=== PATIENT | male | born 1950 | race Caucasian/White ===

== ENCOUNTER → 2019-01-30 | Outpatient (CLI) | payer OTHER ==
[~2019-01-30] MED LIST: METF500C PO; Naprosyn500 MG PO; Norco 5-325 Ta1 EACH PO; PRAV20 PO; Valium5 MG PO
== END | disposition home or self-care (01) ==
LOC: LAB SHORT 07:22 → PLD 07:22
DX: L57.0 Actinic keratosis (principal); L73.9 Follicular disorder, unspecified
CPT/HCPCS: 88305

== ENCOUNTER → 2020-08-10 | Outpatient (CLI) | payer OTHER ==
[~2020-08-10] MED LIST changes: +GLIP10 PO; +GLIP5ER PO; +METF500 PO; +ROSU5 PO
== END | disposition home or self-care (01) ==
LOC: LAB 07:52 → LAB SHORT 07:52
DX: C44.42 Squamous cell carcinoma of skin of scalp and neck (principal)
CPT/HCPCS: 88305

== ENCOUNTER → 2023-04-04 | Outpatient (CLI) | payer OTHER | END | disposition home or self-care (01) | LOC: LAB SHORT 12:01 → LAB 12:01 | DX: D48.5 Neoplasm of uncertain behavior of skin (principal) | CPT/HCPCS: 88305; 88312 ==